=== PATIENT | male | born 1965 | race Caucasian/White ===

== ENCOUNTER 2018-08-05 09:12 | Outpatient (RCR) | payer BC ==
--- NOTE | 2018-08-04 12:58 | RADIOLOGY IMAGING REPORT ---
FACILITY: [facility] PATIENT NAME: Elier Faith : 1965 MR: [id number] V: [id number] EXAM DATE: ORDERING PHYSICIAN: DESIREE RICHARDSON TECHNOLOGIST: Location: [facility] Patient: Elier Faith : 1965 Visit/Account:[id number] Date of Sevice: 08/04/2018 KIDNEYS HISTORY: Deepak hematuria. COMPARISON: None. FINDINGS: Kidneys: Right kidney- 12.3 x 5.7 x 5.3 cm with normal parenchymal thickness and echogenicity. No visualized nephrolithiasis. Left kidney- 10.7 x 4.8 x 5.9 cm with normal parenchymal thickness and echogenicity. No visualized n ephrolithiasis. Uniform and symmetric blood flow in each kidney by Doppler ultrasound. Hydronephrosis: Mild right hydronephrosis. No left hydronephrosis.. Bladder: Bladder is partially distended with prevoid bladder volume measuring 31 mL. The patient stat es her bladder felt full at this time. Post void bladder volume of 18 mL. Abdominal aorta and IVC: Patent by Doppler ultrasound. IMPRESSION: 1. Mild right hydronephrosis. This is nonspecific and could be related to an obstructing calculus or mass. Consider CT IVP for further evaluation. 2. Nonspecific and complete bladder filling. Patient states her bladder is full when the bladder volu me measures approximately 31 mL. Report Dictated By: Gaurav Harris MD at 08/04/2018 12:52 PM Report E-Signed By: Gaurav Harris MD at 08/04/2018 12:55 PM WSN:[id number]
[2018-08-04 13:03] LABS: PLATELET COUNT, AUTOMATED 204 K/uL (150-450)
[2018-08-05] MEDS ORDERED: TAMS0.4C70 PO (10:26)
[2018-08-05] MEDS ORDERED: HYDR453.8 TP (10:26)
[2018-08-05] MEDS ORDERED: ALBU8.5H IH (10:27)
[2018-08-05] MEDS ORDERED: ATOR20TA22 PO (10:27)
[2018-08-05] MEDS ORDERED: IOPAMIDOL 76% 150 ML INFUS BTL 150 ML ONE (14:04)
[2018-08-05] MEDS ORDERED: NS(*) 0.9% 50 ML BAG 50 ML ONE (14:05)
--- NOTE | 2018-08-05 15:29 | RADIOLOGY IMAGING REPORT ---
FACILITY: [facility] [place] PATIENT NAME: Elier Faith : 1965 MR: [id number] V: [id number] EXAM DATE: ORDERING PHYSICIAN: DESIREE RICHARDSON TECHNOLOGIST: Location: [facility] - [place], [place] Patient: Elier Faith : 1965 Visit/Account:[id number] Date of Sevice: 08/05/2018 ABDOMEN/PELVIS W/WO CONTRAST HISTORY: Flank pain. Ultrasound demonstrating right hydronephrosis TECHNIQUE: Axial images acquired through the abdomen/pelvis both with and without IV contrast.. Kamryn nal and sagittal reformatting also performed. One of the following dose optimization techniques was utilized in the performance of this exam: Automated exposure control; adjustment of the mA and/or kV according to the patient's size; or use of an iterative reconstruction technique. Specific details can be referenced in the facility's radiology CT exam operational policy. CONTRAST: 125 mL Isovue-370 COMPARISON: Ultrasound from 08/04/2000 FINDINGS: Visualized lung bases: Negative. Hepatobiliary: There is a ill-defined hypoattenuated mass in the posterior aspect of the right lobe of the liver within the dome measuring approximately 4 x 5 x 6.5 cm in its greatest dimension. On th e noncontrast this represents an area of ill-defined hypoattenuation. On the eight minute delayed im aging there is ill-defined peripheral enhancement with a central area of attenuation. No additional hepatic lesion seen. Spleen: Negative Adrenals: Negative. Pancreas: Negative. Kidneys ureters and bladder: Right hydronephrosis. There is a dilated right ureter down to an obstru cting 3 mm stone at the vesicoureteral junction. A prosthetic right hip is degrading the image at th is level. (Image 123 series 6) Genitalia: Negative. GI: Negative. Vessels/spaces/nodes: Negative. Bones/soft tissues: Advanced disc degenerative changes at the L4-5 disc level. Additional findings: None pertinent. IMPRESSION: 1. Obstructing 3 mm stone in the distal right ureter at the vesicoureteral junction. 2. 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 Report Dictated By: Reed Jones MD at 08/05/2018 3:04 PM Report E-Signed By: Reed Jones MD at 08/05/2018 3:24 PM WSN:[id number]
== END 2018-08-05 18:00 | disposition home or self-care (01) ==
LOC: EDSTATUS 09:12 → CT 09:12
PROVIDERS: ATTEND Nurse Practitioner Family
DX: R31.0 Gross hematuria (principal); R35.0 Frequency of micturition; N13.30 Unspecified hydronephrosis; N20.1 Calculus of ureter
CPT/HCPCS: 36415; 74178; 76705; 84153; 85025; J7050; Q9967; 82040; 82247; 82310; 82374; 82435; 82565; 82947; 84075; 84132; 84155; 84295; 84450; 84460; 84520

== ENCOUNTER → 2018-08-05 | Outpatient (CLI) | payer BC ==
[~2018-08-05] VITALS: Ht 175.3 cm; Wt 79.4 kg
[~2018-08-05] MED LIST: ALBU8.5H IH; ATOR20TA22 PO; FAMOTIDINE 20 MG TAB PO ONE; HYDR453.8 TP; LIDOCAINE/SOD BICARB 8.4% SYR ID ONE; MIDAZOLAM 2 MG/2 ML VIAL IVP PRN; NORMOSOL R SOLN(*) 1000 ML BAG 1,000 ML IV PRN; TAMS0.4C70 PO; ceFAZolin(*) 1 GM VIAL 1 GM in NS(*) 0.9% 100 ML ADDVANT BAG 100 ML IVPB ONE
== END ==
LOC: LAB 08:00 → OR 08-08 00:42 → EDSTATUS 08-08 08:30
PROVIDERS: ATTEND Urology
DX: Z01.812 Encounter for preprocedural laboratory examination (principal)
CPT/HCPCS: 81001; 87088

== ENCOUNTER → 2018-08-19 | Outpatient (CLI) | payer BC ==
[~2018-08-19] MED LIST changes: -FAMOTIDINE 20 MG TAB PO ONE; +GADOBENATE 529MG/1ML 15ML VIAL IVP ONE; -LIDOCAINE/SOD BICARB 8.4% SYR ID ONE; -MIDAZOLAM 2 MG/2 ML VIAL IVP PRN; -NORMOSOL R SOLN(*) 1000 ML BAG 1,000 ML IV PRN; +NS(*) 0.9% 50 ML BAG 50 ML ONE; -ceFAZolin(*) 1 GM VIAL 1 GM in NS(*) 0.9% 100 ML ADDVANT BAG 100 ML IVPB ONE
--- NOTE | 2018-08-19 10:10 | RADIOLOGY IMAGING REPORT ---
FACILITY: [facility] PATIENT NAME: Elier Faith : 1965 MR: [id number] V: [id number] EXAM DATE: ORDERING PHYSICIAN: DESIREE RICHARDSON TECHNOLOGIST: Location: [facility] Patient: Elier Faith : 1965 Visit/Account:[id number] Date of Sevice: 08/19/2018 Single view of the orbits INDICATION: Pre-MRI. Evaluate for radiopaque foreign body. FINDINGS: Single Acosta' view was obtained of the skull. No evidence of radiopaque foreign body over lying the bilateral orbits. The visualized paranasal sinuses appear patent. No acute osseous abnorm ality identified. IMPRESSION: No evidence of radiopaque foreign body overlying the orbits. Report Dictated By: Todd Tierney MD at 08/19/2018 10:06 AM Report E-Signed By: Todd Tierney MD at 08/19/2018 10:06 AM WSN:[id number]
--- NOTE | 2018-08-19 12:07 | RADIOLOGY IMAGING REPORT ---
[place] [facility] [place]: Elier Faith : 1965 MR: [id number] V: [id number] EXAM DATE: ORDERING PHYSICIAN: DESIREE RICHARDSON TECHNOLOGIST: Location: [facility] [place] Patient: Elier Faith : 1965 Visit/Account:[id number] Date of Sevice: 08/19/2018 ABDOMEN W W/O CONTRAST HISTORY: Liver lesion, history of kidney stones ADDITIONAL HISTORY: None. TECHNIQUE: TECHNIQUE: Multiplanar multisequence magnetic resonance imaging of the abdomen with and without intravenous contrast. CONTRAST: 15 mL of MultiHance COMPARISON: CT abdomen and pelvis August 05, 2018 FINDINGS: Visualized lung bases: Grossly unremarkable. Liver: Along the dome of the liver there is a 7.6 x 5.3 x 4.5 cm polylobular lobular mass demonstrati ng increased T2 signal intensity. This demonstrates peripheral contrast enhancement on the arterial phase images with progressive centripetal filling with contrast on the delayed images. On the five m inute post contrast image there is still a irregular central region without contrast enhancement whic h could represent necrosis. This likely represents a giant hemangioma. In the posterior inferior ri ght lobe there is a polylobular 2.7 x 1.8 x 2.1 cm polylobular lobular mass which also demonstrates p eripheral enhancement on the arterial phase image with complete enhancement following blood pool on t he delayed images which is consistent with a hemangioma. Also noted is a tiny 4 mm cyst in the later al right lobe. Gallbladder: Negative. Bile ducts: Nondistended and unremarkable. Spleen: Negative. Adrenal glands: Negative. Pancreas: Negative. Kidneys: Negative. Vessels/spaces/nodes: There are scattered left periaortic lymph nodes below the level of the renal ve ssels measuring up to 1.5 x 0.7 cm Visualized GI: Grossly unremarkable. Bones/soft tissues: Unremarkable. IMPRESSION: There are two masses in the right lobe of the liver the largest along the dome measuring 7.6 x 5.3 x 4.5 cm which likely represents a giant hemangioma as detailed above There is an additional 2.7 x 1.8 x 2.1 cm polylobular mass in the inferior right lobe consistent with a hemangioma Scattered para-aortic lymph nodes below the level of the renal vessels which could be reactive althou gh clinical follow-up recommended Report Dictated By: Damaris Farris MD at 08/19/2018 11:47 AM Report E-Signed By: Damaris Farris MD at 08/19/2018 12:03 PM HILARYN:[email or web address]
== END ==
LOC: MRI 04:18
PROVIDERS: ATTEND Nurse Practitioner Family
DX: K76.9 Liver disease, unspecified (principal)
CPT/HCPCS: 70030; 74183; A9577; J7050

== ENCOUNTER 2018-11-23 17:32 | Emergency (ER) | payer BC ==
[~2018-11-23 17:32] MED LIST changes: -GADOBENATE 529MG/1ML 15ML VIAL IVP ONE; -NS(*) 0.9% 50 ML BAG 50 ML ONE
[2018-11-23] MEDS ORDERED: PROPOFOL EMUL 10MG/ML 20 ML VL IVP ONE (17:40)
[2018-11-23] MEDS ORDERED: NS(*) 0.9% 1000 ML BAG 1,000 ML IV ONE (17:40)
[2018-11-23] MEDS ORDERED: MORPHINE 4 MG/ML SDV IVP ONE (17:40)
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
[2018-11-23] MEDS ORDERED: PROPOFOL EMUL(*) 10MG/ML 20 ML 0 ML ONE (17:59)
--- NOTE | 2018-11-23 18:06 | RADIOLOGY IMAGING REPORT ---
FACILITY: [facility] [place] PATIENT NAME: Elier Faith : 1965 MR: [id number] V: [id number] EXAM DATE: ORDERING PHYSICIAN: CRISTINO MORALES TECHNOLOGIST: Location: [facility] [place] Patient: Elier Faith : 1965 Visit/Account:[id number] Date of Sevice: 11/23/2018 EXAMINATION: Left shoulder radiographs 2 views HISTORY: Dislocation. COMPARISON: None. FINDINGS: 2 views of the left shoulder are obtained. Bones: Mild focal flattening in the posterior humeral head questionable for a small Hill-Sachs lesio n. Joint spaces: Anterior dislocation of the humeral head. Small osteophytes at the acromioclavicular j oint. Hardware: None. Soft tissues/visualized lungs: Negative. IMPRESSION: Anterior dislocation of the left humeral head. Mild focal flattening in the posterior humeral head is questionable for a small Hill-Sachs lesion whi ch is age-indeterminate. Report Dictated By: Rylan Parkinson MD at 11/23/2018 5:58 PM Report E-Signed By: Rylan Parkinson MD at 11/23/2018 6:03 PM WSN:[id number]
--- NOTE | 2018-11-23 19:11 | RADIOLOGY IMAGING REPORT ---
FACILITY: [facility] PATIENT NAME: Elier Faith : 1965 MR: [id number] V: [id number] EXAM DATE: ORDERING PHYSICIAN: CRISTINO MORALES TECHNOLOGIST: Location: [facility] Patient: Elier Faith : 1965 Visit/Account:[id number] Date of Sevice: 11/23/2018 EXAMINATION: Left shoulder radiographs 2 views HISTORY: Status post shoulder dislocation. Post reduction. COMPARISON: None. FINDINGS: 2 views of the left shoulder are obtained. Bones: No acute fracture is identified. Joint spaces: There is been successful reduction of the left glenohumeral joint dislocation. Small o steophytes at the acromioclavicular joint. Hardware: None. Alignment: Normal. Soft tissues/visualized lungs: Negative. IMPRESSION: Successful reduction of the left glenohumeral joint dislocation. Report Dictated By: Rylan Parkinson MD at 11/23/2018 7:04 PM Report E-Signed By: Rylan Parkinson MD at 11/23/2018 7:06 PM WSN:[id number]
[2018-11-23] MEDS ORDERED: HYDR-385 PO (19:15)
[2018-11-23 19:30] VITALS: BP 139/86
== END 2018-11-23 19:43 | disposition home or self-care (01) ==
LOC: ER 18:09
DX: S43.005A Unspecified dislocation of left shoulder joint, initial encounter (principal); V86.52XA Driver of snowmobile injured in nontraffic accident, initial encounter
CPT/HCPCS: 23650; 73030; 96361; 96374; 99152; 99285; J2270; J2704; J7030